=== PATIENT | male | born 1970 | race Caucasian/White ===

== ENCOUNTER 2018-04-10 19:51 | Outpatient (CLI) | payer OTHER | END 2018-04-11 06:05 | disposition home or self-care (01) | LOC: SLEEP 19:51 | PROVIDERS: ATTEND Otolaryngology Otolaryngology/Facial Plastic Surgery | DX: G47.33 Obstructive sleep apnea (adult) (pediatric) (principal) | CPT/HCPCS: 95811 ==

== ENCOUNTER 2022-02-17 14:55 | Emergency (ER) | payer OTHER ==
[~2022-02-17] VITALS: Ht 175 cm; Wt 120.0 kg
[2022-02-17] MEDS ORDERED: BUPR-168 PO (15:14)
[2022-02-17] MEDS ORDERED: ATOR80TA76 PO (15:14)
[2022-02-17 15:18] LABS: BASOPHILS % (AUTO) 1 % (0-10); EOSINOPHILS # (AUTO) 0.3 10^3/uL (0.0-0.3); EOSINOPHILS % (AUTO) 4 % (0-10); HEMATOCRIT 48 % (40-54); HEMOGLOBIN 15.9 g/dL (13.3-17.7); LYMPHOCYTES # (AUTO) 2.2 X 10^3 (1.0-4.0); LYMPHOCYTES % (AUTO) 28 % (12-44); MEAN CORPUSCULAR HEMOGLOBIN 31 pg (25-34); MEAN CORPUSCULAR HGB CONC 33 g/dL (32-36); MEAN CORPUSCULAR VOLUME 95 fL (80-99); MEAN PLATELET VOLUME 9.4 fL (9.0-12.2); MONOCYTES # (AUTO) 0.8 X 10^3 (0.0-1.0); MONOCYTES % (AUTO) 10 % (0-12); NEUTROPHILS # (AUTO) 4.6 X 10^3 (1.8-7.8); NEUTROPHILS % (AUTO) 58 % (42-75); PLATELET COUNT 363 10^3/uL (130-400); WHITE BLOOD COUNT 7.9 10^3/uL (4.3-11.0)
[2022-02-17 15:23] LABS: ALBUMIN 4.4 GM/DL (3.2-4.5); POTASSIUM 3.7 MMOL/L (3.6-5.0)
[2022-02-17 15:24] LABS: CALCIUM 9.5 MG/DL (8.5-10.1)
[2022-02-17 15:25] LABS: INR 0.9 (0.8-1.4); PROTHROMBIN TIME PATIENT 12.7 SEC (12.2-14.7); TOTAL PROTEIN 7.8 GM/DL (6.4-8.2)
[2022-02-17 15:27] LABS: BILIRUBIN,TOTAL 0.5 MG/DL (0.1-1.0)
[2022-02-17 15:29] LABS: CREATININE SERUM 1.13 MG/DL (0.60-1.30)
[2022-02-17 15:32] LABS: MAGNESIUM 2.1 MG/DL (1.6-2.4)
--- NOTE | 2022-02-17 15:46 | ED General ---
General Chief Complaint: Dizziness/Syncope Stated Complaint: DIZZINESS Nursing Triage Note: PT STATES BEING DIZZY AND LIGHTHEADED AFTER EATING LUNCH, FELT TIRED AND WASN'T FEELING WELL. WEARING A HEART MONITOR BECAUSE OF AN EPISODE IN Source of Information: Patient Exam Limitations: No Limitations History of Present Illness Date Seen by Provider: Feb 17, 2022 Time Seen by Provider: 15:44 Initial Comments Patient is a 51-year-old male history of dyslipidemia who presents to ED by POV for near syncopal episode. States around 12:00 was eating lunch. Started feeling "off". States he started feeling tired and fatigued. Went to go lay down as he felt like he was going to pass out. He has had these episodes since September. In September he had episode where he had a near syncopal episode in his arms and extremities become numb. He did not have any numbness type sensation today. Denies any chest pain, shortness of breath, cough, vomiting, diarrhea. Patient gets improvement when he sat still. Worse when he lies down. The symptoms last for typically a few minutes when he lays down. He reports episodes twice a week. Does have a Holter monitor wearing currently for his primary care physician. No known history of coronary artery disease CHF, arrhythmia. Scheduled to get outpatient CT angio of the head and neck rule out any carotid stenosis. No history of stroke. Allergies and Home Medications Allergies Coded Allergies: No Known Drug Allergies (Unverified , 02/17/22) Patient Home Medication List Home Medication List Reviewed: Yes Atorvastatin Calcium (Atorvastatin Calcium) 80 Mg Tablet, 80 MG PO, (Reported) Entered as Reported by: KRISTEN ORELLANA on 02/17/221513 Last Action: New Order Bupropion HCl (Bupropion HCl) 75 Mg Tablet, 150 MG PO, (Reported) Entered as Reported by: KRISTEN ORELLANA on 02/17/221513 Last Action: New Order Review of Systems Review of Systems Constitutional: No chills, No diaphoresis; malaise, weakness EENTM: No ear pain, No blurred vision, No double vision, No mouth pain, No mouth swelling Respiratory: No cough, No dyspnea on exertion, No short of breath Cardiovascular: No chest pain, No edema Gastrointestinal: No abdominal pain, No diarrhea, No nausea, No vomiting Genitourinary: No decreased output, No discharge Musculoskeletal: No back pain, No joint pain Psychiatric/Neurological: Other (lightheadness, near syncope) All Other Systems Reviewed Negative Unless Noted: Yes Past Vqzxruk-Ptvicl-Dizmce Hx Patient Social History Tobacco Use?: Yes Tobacco type used: Cigarettes Smoking Status: Current Everyday Smoker Use of E-Cig and/or Vaping dev: No Substance use?: No Alcohol Use?: No Past Medical History Surgery/Hospitalization HX: APPENDIX Physical Exam Vital Signs Vital Signs - First Documented 02/17/22 15:00 Temp 36.4 Pulse 98 Resp 20 B/P (MAP) 150/92 (111) Pulse Ox 98 O2 Delivery Room Air Capillary Refill : Less Than 3 Seconds Height, Weight, BMI Height: '" Weight: lbs. oz. kg; 39.00 BMI Method: General Appearance: No Apparent Distress, WD/WN Eyes: Bilateral Eye Normal Inspection, Bilateral Eye PERRL, Bilateral Eye EOMI HEENT: PERRL/EOMI, TMs Normal, Normal ENT Inspection, Pharynx Normal Neck: Full Range of Motion, Normal Inspection, Non Tender, Supple Respiratory: Chest Non Tender, Lungs Clear, Normal Breath Sounds, No Accessory Muscle Use, No Respiratory Distress Cardiovascular: Regular Rate, Rhythm, No Edema, No Gallop, No JVD Gastrointestinal: Normal Bowel Sounds, No Organomegaly, No Pulsatile Mass, Non Tender Back: Normal Inspection Extremity: Normal Capillary Refill, Normal Inspection, Normal Range of Motion, Non Tender Neurologic/Psychiatric: Alert, Oriented x3, No Motor/Sensory Deficits, Normal Mood/Affect, fast food crew member II-XII Norm as Tested Skin: Normal Color, Warm/Dry Progress/Results/Core Measures Suspected Sepsis SIRS Temperature: Pulse: 98 Respiratory Rate: 20 Laboratory Tests 02/17/22 15:00: White Blood Count 7.9 Blood Pressure 150 /92 Mean: 111 Laboratory Tests 02/17/22 15:00: Creatinine 1.13, INR Comment 0.9, Platelet Count 363, Total Bilirubin 0.5 Results/Orders Lab Results Laboratory Tests Test 02/17/22 15:00 Range/Units White Blood Count 7.9 4.3-11.0 10^3/uL Red Blood Count 5.11 4.30-5.52 10^6/uL Hemoglobin 15.9 13.3-17.7 g/dL Hematocrit 48 40-54 % Mean Corpuscular Volume 95 80-99 fL Mean Corpuscular Hemoglobin 31 25-34 pg Mean Corpuscular Hemoglobin Concent 33 32-36 g/dL Red Cell Distribution Width 13.6 10.0-14.5 % Platelet Count 363 130-400 10^3/uL Mean Platelet Volume 9.4 9.0-12.2 fL Immature Granulocyte % (Auto) 0 % Neutrophils (%) (Auto) 58 42-75 % Lymphocytes (%) (Auto) 28 12-44 % Monocytes (%) (Auto) 10 0-12 % Eosinophils (%) (Auto) 4 0-10 % Basophils (%) (Auto) 1 0-10 % Neutrophils # (Auto) 4.6 1.8-7.8 X 10^3 Lymphocytes # (Auto) 2.2 1.0-4.0 X 10^3 Monocytes # (Auto) 0.8 0.0-1.0 X 10^3 Eosinophils # (Auto) 0.3 0.0-0.3 10^3/uL Basophils # (Auto) 0.0 0.0-0.1 10^3/uL Immature Granulocyte # (Auto) 0.0 0.0-0.1 10^3/uL Prothrombin Time 12.7 12.2-14.7 SEC INR Comment 0.9 0.8-1.4 Activated Partial Thromboplast Time 27 24-35 SEC Sodium Level 138 135-145 MMOL/L Potassium Level 3.7 3.6-5.0 MMOL/L Chloride Level 102 98-107 MMOL/L Carbon Dioxide Level 22 21-32 MMOL/L Anion Gap 14 5-14 MMOL/L Blood Urea Nitrogen 7 7-18 MG/DL Creatinine 1.13 0.60-1.30 MG/DL Estimat Glomerular Filtration Rate 79 BUN/Creatinine Ratio 6 Glucose Level 119 H 70-105 MG/DL Calcium Level 9.5 8.5-10.1 MG/DL Corrected Calcium 9.2 8.5-10.1 MG/DL Magnesium Level 2.1 1.6-2.4 MG/DL Total Bilirubin 0.5 0.1-1.0 MG/DL Aspartate Amino Transf (AST/SGOT) 17 5-34 U/L Alanine Aminotransferase (ALT/SGPT) 26 0-55 U/L Alkaline Phosphatase 91 40-136 U/L Myoglobin 58.3 10.0-92.0 NG/ML Troponin I < 0.028 <0.028 NG/ML B-Type Natriuretic Peptide < 10.0 <100.0 PG/ML Total Protein 7.8 6.4-8.2 GM/DL Albumin 4.4 3.2-4.5 GM/DL Lipase 62 8-78 U/L My Orders Orders - BRITTANY EWING PA Cbc With Automated Diff (02/17/22 15:02) Magnesium (02/17/22 15:02) Chest 1 View, Ap/Pa Only (02/17/22 15:02) Ekg Tracing (02/17/22 15:02) Comprehensive Metabolic Panel (02/17/22 15:02) Myoglobin Serum (02/17/22 15:02) Protime With Inr (02/17/22 15:02) Partial Thromboplastin Time (02/17/22 15:02) Monitor-Rhythm Ecg Trace Only (02/17/22 15:02) Ed Iv/Invasive Line Start (02/17/22 15:02) Lipase (02/17/22 15:02) Bnp [place] (02/17/22 15:02) Troponin I [place] (02/17/22 15:02) Ct Head Wo (02/17/22 15:43) Ct Angio Neck W (02/17/22 16:27) Iohexol Injection (Omnipaque 350 Mg/Ml 1 (02/17/22 16:45) Received Contrast (Hold Metformin- Contr (02/17/22 16:45) Ns (Ivpb) (Sodium Chloride 0.9% Ivpb Bag (02/17/22 16:45) Medications Given in ED Current Medications Medications Dose Ordered Sig/Heidi Route Start Time Stop Time Status Last Admin Dose Admin Iohexol 100 ml ONCE ONCE IV 02/17/22 16:45 02/17/22 16:46 DC 02/17/22 17:14 75 ML Sodium Chloride 100 ml ONCE ONCE IV 02/17/22 16:45 02/17/22 16:46 DC 02/17/22 17:14 100 ML Vital Signs/I&O 02/17/22 02/17/22 15:00 18:19 Temp 36.4 Pulse 98 73 Resp 20 17 B/P (MAP) 150/92 (111) 133/87 Pulse Ox 98 96 O2 Delivery Room Air Room Air Capillary Refill : Less Than 3 Seconds Blood Pressure Mean: 111 Departure Communication (PCP) Patient with near fainting. States he fell off after eating. States he felt like he was going to have a syncopal episode. He had no chest pain or shortness of breath. He does currently have a monitor technician at this time prescribed by his primary care physician. Has had intermittent near fainting episodes since September. Patient EKG showed normal sinus rhythm. No evidence of arrhythmia, ST elevation or depression. No known cardiac history. Currently on atorvastatin and Wellbutrin. Patient cardiac work-up unremarkable. Patient is not tachycardic or hypoxic. No recent travels or surgeries or leg swelling. No current risk factors for PE or DVT. Patient CT scan was unremarkable. He states he has an outpatient order for evaluation of his carotids. CT angio of the neck was ordered rule out any stenosis which was unremarkable. Mild atherosclerosis was noted. Patient was sitting at bedside. He had no current episodes at this time. Patient states he is feeling much better. He states that the symptoms do come and go and last for few minutes. He was worried today as the symptom lasted longer than normal. He was not orthostatic hypotensive. Does not appear dehydrated. Normal blood pressure. Not currently on blood pressure medication. No strokelike symptoms. Recommend following up with his primary care physician for further evaluation. Did offer cardiac follow-up for further evaluation. If any worsening symptoms return back to ED for further evaluation. Impression Primary Impression: Lightheadedness Disposition: 01 HOME, SELF-CARE Condition: Stable Departure-Patient Inst. Decision time for Depature: 18:07 Referrals: LORAINE SAAB MD NO,LOCAL PHYSICIAN (PCP) Primary Care Physician Patient Instructions: Near Fainting (DC) Add. Discharge Instructions: Continue with your follow-up with your provider. If any worsening symptoms return back to ED. All discharge instructions reviewed with patient and/or family. Voiced understanding. BRITTANY EWING Feb 17, 2022 15:46
--- NOTE | 2022-02-17 16:06 | Diagnostic Imaging Report ---
INDICATION: Chest pain, dizziness. TECHNIQUE: Single view chest, 3:40 PM. CORRELATION STUDY: None. FINDINGS: Heart size enlarged. Vasculature within normal limits. Electronic device projects over the left axillary region. Pleural thickening along the right lateral chest. Elevated right diaphragm. Questionable nodular density in the left hilum. IMPRESSION: 1. Cardiac enlargement without evidence of overt failure. Likely some pleural thickening along the right chest wall. 2. Questionable density in the left hilar region likely overlapping summation shadows. Would however recommend short-term follow up two-view chest imaging for reassessment. Dictated by: Dictated on workstation # [id number]
--- NOTE | 2022-02-17 16:22 | Diagnostic Imaging Report ---
EXAMINATION: CT head without contrast. TECHNIQUE: Multiple contiguous axial images were obtained through the brain without the use of intravenous contrast. All CT scans use one or more of the following dose optimizing techniques: automated exposure control, MA and/or KvP adjustment based on patient size and exam type or iterative reconstruction. HISTORY: Headache and dizziness. COMPARISON: None available. FINDINGS: The maria-white matter differentiation is normal. No mass effect or midline shift. The ventricles are normal in size and configuration. Basilar cisterns are patent. There are no intra-axial or extra-axial fluid collections. There is no intracranial hemorrhage. The orbits are normal. Paranasal sinuses are normal. Mastoid air cells are clear. No soft tissue abnormality is seen. No osseus lesions or fractures are seen. IMPRESSION: No acute intracranial abnormality. Dictated by: Dictated on workstation # [id number]
[2022-02-17] MEDS ORDERED: NS 100 ML (IVPB) BAG IV ONE (16:45)
[2022-02-17] MEDS ORDERED: IOHEXOL 350 MG/ML 100 ML (OMNIPAQUE 350) VIAL IV ONE (16:45)
[2022-02-17] MEDS ORDERED: HOLD METFORMIN - RECEIVED CONTRAST 20 ML VIAL IV SCH (16:45)
--- NOTE | 2022-02-17 17:38 | Diagnostic Imaging Report ---
INDICATION: Dizziness. TECHNIQUE: CTA of the head and neck. Thin axial sections through the head and neck were obtained following intravenous contrast bolus. Multiplanar MIP images were reconstructed and reviewed. FINDINGS: Brachiocephalic origins are widely patent. There is some atherosclerotic plaque present in both carotid bifurcations. There is no occlusion or hemodynamically significant stenosis. Both vertebral arteries are patent. Intracranially, there is no aneurysm, arterial venous malformation or large vessel occlusion. The ventricles are normal in size, shape and position. There are no masses or hemorrhages. There are no extra-axial fluid collections. Postcontrast images do not show any abnormal area of enhancement. Dural venous sinuses are patent. IMPRESSION: Mild atherosclerotic changes of the carotid bifurcations. No acute abnormality is seen. Dictated by: Dictated on workstation # [id number]
[2022-02-17 18:19] VITALS: BP 133/87
== END 2022-02-17 18:19 | disposition home or self-care (01) ==
LOC: EDUNIT# 14:55 → ER 14:56
DX: R42 Dizziness and giddiness (principal); F17.210 Nicotine dependence, cigarettes, uncomplicated
CPT/HCPCS: 36415; 70450; 70498; 71045; 80053; 83690; 83735; 83874; 83880; 84484; 85025; 85610; 85730; 93005; 93041